=== PATIENT | female | born 1950 | race Caucasian/White ===

== ENCOUNTER 2017-07-08 16:18 | Emergency (ER) | payer OTHER ==
[2017-07-08 16:35] VITALS: BP 152/53
--- NOTE | 2017-07-08 16:55 | EDM.PDOC ---
<RamaRobbie Terese - Last Filed: 07/08/17 19:04> ED HPI GENERAL MEDICAL PROBLEM - General Chief Complaint: Gastrointestinal Problem Stated Complaint: DEHYDRATION Time Seen by Provider: 07/08/17 16:55 - History of Present Illness INITIAL COMMENTS - FREE TEXT/NARRATIVE: 66-year-old female presents emergency room with dehydration. 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 She has had nausea frequent vomiting and just not eating or drinking very much. She has stopped a bunch of her medication including her nausea medication because of itching she's not sure what the attending agedness however it is thought to be possibly the sulfa medications she was on Bactrim prophylactically. The patient has had some intermittent urinary tract symptoms. Back Pain Score (Numeric/FACES): 7 - Related Data Allergies Allergy/AdvReac Type Severity Reaction Status Date / Time levofloxacin Allergy Cannot Verified 07/08/17 16:29 Remember paroxetine HCl [From Paxil] Allergy Rash Verified 07/08/17 16:29 baclofen AdvReac Change Verified 07/08/17 16:29 Mental Status Home Meds: Home Meds Ascorbic Acid [Vitamin C] 1,000 mg PO DAILY 10/14/15 [History] Calcium Carbonate [Calcium] 500 mg PO DAILY 10/14/15 [History] Candesartan/Hydrochlorothiazid [Candesartan-Hctz 32-12.5 mg Tb] 1 tab PO DAILY 10/14/15 [History] Cholecalciferol (Vitamin D3) [Vitamin D3] 1,000 units PO DAILY 10/14/15 [History ] Latanoprost [Xalatan 0.005% Ophth Soln] 1 drop EYEBOTH DAILY 10/14/15 [History] Lubiprostone [Amitiza] 1 tab PO DAILY 10/14/15 [History] Metoprolol/Hydrochlorothiazide [Metoprolol-HCTZ 50-25 MG] 1 tab PO DAILY [History] Omeprazole [Omeprazole] 40 mg PO BID 10/14/15 [History] Simvastatin [Zocor] 10 mg PO DAILY 10/14/15 [History] Vitamin B Complex [B Complex] 1 each PO DAILY 10/14/15 [History] Ondansetron [Zofran ODT] 4 mg PO Q4H PRN #12 tab.dis 07/08/17 [Rx] Potassium Chloride [Klor-Con M20] 20 meq PO BID #6 tab.er 07/08/17 [Rx] Past Medical History HEENT History: Reports: Cataract, Impaired Vision Other HEENT History: Wears glasses Cardiovascular History: Reports: High Cholesterol, Hypertension [employer]PER[employer] History: Reports: Other OB/BYN History: Musculoskeletal History: Reports: Arthritis, Back Pain, Chronic Neurological History: Reports: Headaches, Chronic Endocrine/Metabolic History: Reports: Diabetes, Type II, Other (See Below) Other Endocrine/Metabolic History: 3 nodules on thyroid - Infectious Disease History Infectious Disease History: Reports: Chicken Pox - Past Surgical History HEENT Surgical History: Reports: Naso-Sinus Surgery GI Surgical History: Reports: Cholecystectomy, Hernia Repair/Other, Other (See Below) Musculoskeletal Surgical History: Reports: Carpal Tunnel, Other (See Below) Social & Family History - Tobacco Use Smoking Status *Q: Never Smoker - Recreational Drug Use Recreational Drug Use: No ED ROS GENERAL - Review of Systems Review Of Systems: See Below Constitutional: Reports: No Symptoms HEENT: Reports: No Symptoms Respiratory: Reports: No Symptoms Cardiovascular: Reports: No Symptoms Endocrine: Reports: No Symptoms GI/Abdominal: Reports: Diarrhea, Nausea, Vomiting. Denies: Abdominal Pain : Reports: Dysuria, Urgency Neurological: Reports: No Symptoms ED EXAM, GI/ABD - Physical Exam Exam: See Below Exam Limited By: No Limitations General Appearance: Alert, No Apparent Distress Head: Atraumatic, Normocephalic Neck: Normal Inspection, Supple, Non-Tender, Full Range of Motion. No: Lymphadenopathy (L), Lymphadenopathy (R) Respiratory/Chest: No Respiratory Distress, Lungs Clear, Normal Breath Sounds Cardiovascular: Regular Rate, Rhythm, No Edema, Systolic Murmur, Other (Soft holosystolic murmur) GI/Abdominal Exam: Normal Bowel Sounds, Soft, Other (Vague suprapubic discomfort ). No: Distended, Guarding, Rigid, Rebound Back Exam: Normal Inspection, CVA Tenderness (L). No: CVA Tenderness (R), Vertebral Tenderness Extremities: Normal Inspection, No Pedal Edema Neurological: Alert, Oriented, Normal Cognition Skin Exam: Warm, Dry, Intact Course - Vital Signs Last Recorded V/S: Last Vital Signs Temp 36.7 C 07/08/17 16:30 Pulse 100 07/08/17 16:30 Resp 17 07/08/17 16:30 BP 152/53 H 07/08/17 16:30 Pulse Ox 100 07/08/17 16:30 - Orders/Labs/Meds Labs: Laboratory Tests 07/08/17 07/08/17 07/08/17 Range/Units 16:35 16:35 19:15 WBC 5.25 (3.98-10.04) K/mm3 RBC 3.61 L (3.98-5.22) M/mm3 Hgb 10.4 L (11.2-15.7) gm/L Hct 30.2 L (34.1-44.9) % MCV 83.7 (79.4-94.8) fl MCH 28.8 (25.6-32.2) pg MCHC 34.4 (32.2-35.5) g/dl RDW Std Deviation 53.6 H (36.4-46.3) fL Plt Count 183 (182-369) K/mm3 MPV 8.6 L (9.4-12.3) fl Neutrophils % (Manual) 55 (40-60) % Band Neutrophils % 0 (0-10) % Lymphocytes % (Manual) 32 (20-40) % Atypical Lymphs % 0 % Monocytes % (Manual) 7 (2-10) % Eosinophils % (Manual) 5 (0.7-5.8) % Basophils % (Manual) 1 (0.1-1.2) Platelet Estimate Adequate Plt Morphology Comment Normal Anisocytosis 1+ slight RBC Morph Comment Not Reportable Sodium 139 (136-145) mEq/L Potassium 2.9 L (3.5-5.1) mEq/L Chloride 104 (98-107) mEq/L Carbon Dioxide 20 L (21-32) mEq/L Anion Gap 17.9 H (5-15) BUN 11 (7-18) mg/dL Creatinine 0.9 (0.55-1.02) mg/dL Est Cr Clr Drug Dosing 54.53 mL/min Estimated GFR (MDRD) > 60 (>60) mL/min BUN/Creatinine Ratio 12.2 L (14-18) Glucose 145 H (80-115) mg/dL Calcium 9.6 (8.5-10.1) mg/dL Total Bilirubin 0.6 (0.2-1.0) mg/dL AST 35 (15-37) U/L ALT 45 (14-59) U/L Alkaline Phosphatase 270 H (46-116) U/L Total Protein 6.3 L (6.4-8.2) g/dl Albumin 3.4 (3.4-5.0) g/dl Globulin 2.9 gm/dL Albumin/Globulin Ratio 1.2 (1-2) Lipase 86 (73-393) U/L Urine Color Yellow (Yellow) Urine Appearance Clear (Clear) Urine pH 7.0 (5.0-8.0) Ur Specific Elizabeth 1.020 (1.005-1.030) Urine Protein Trace H (Negative) Urine Glucose (UA) Negative (Negative) Urine Ketones Negative (Negative) Urine Occult Blood Negative (Negative) Urine Nitrite Negative (Negative) Urine Bilirubin Negative (Negative) Urine Urobilinogen 0.2 (0.2-1.0) Ur Leukocyte Esterase Trace H (Negative) Urine RBC 0-5 (0-5) /hpf Urine WBC 0-5 (0-5) /hpf Ur Epithelial Cells 0-5 (0-5) /hpf Urine Bacteria Few (FEW) /hpf Urine Mucus Few (FEW) /hpf Meds: Medications Discontinued Medications Generic Name Dose Route Start Last Admin Trade Name Ewa PRN Reason Stop Dose Admin Lactated Ringer's 1,000 mls @ 999 mls/hr 07/08/17 17:15 07/08/17 17:26 Ringers, Lactated IV 07/08/17 18:15 999 mls/hr .BOLUS ONE Administration Lactated Ringer's 1,000 mls @ 999 mls/hr 07/08/17 18:38 07/08/17 18:47 Ringers, Lactated IV 07/08/17 19:38 999 mls/hr .BOLUS ONE Administration Ondansetron HCl 4 mg 07/08/17 17:15 07/08/17 17:26 Zofran IVPUSH 07/08/17 17:16 4 mg ONETIME ONE Administration Potassium Chloride 40 meq 07/08/17 18:40 07/08/17 18:47 Klor-Con M20 PO 07/08/17 18:41 40 meq ONETIME ONE Administration - Re-Assessments/Exams Free Text/Narrative Re-Assessment/Exam: 07/08/17 18:52 Patient had some improvement with the Zofran she's received a liter of LR will start a second liter now. We'll discharge her on Zofran awaiting urine specimen at this point it was noted that her potassium was low at 2.9 she's given 40 mEq by mouth we are still awaiting the urinalysis Departure - Departure Disposition: Home, Self-Care 01 Clinical Impression: Dehydration, Hypokalemia - Discharge Information Prescriptions: Ondansetron [Zofran ODT] 4 mg PO Q4H PRN #12 tab.dis PRN Reason: Nausea/Vomiting Potassium Chloride [Klor-Con M20] 20 meq PO BID #6 tab.er Instructions: Hypokalemia Referrals: Kika Bailey [employer] ESTATE DEVELOPMENT MANAGER [Primary Care Provider] - Forms: ED Department Discharge Additional Instructions: Return to the emergency room with any questions problems worsening symptoms. Follow-up with your regular physician tomorrow as scheduled. You been started on some potassium take one twice daily until all gone you'll need follow-up on your potassium levels down the road discuss this with your regular physician. We are trying you on Zofran, this is an anti-nausea medication. It seems to be working pretty well for you here in the emergency room. He regular physician can refill this if you find it helpful. <Wilfredo Cardoso - Last Filed: 07/08/17 19:49> Course - Re-Assessments/Exams Free Text/Narrative Re-Assessment/Exam: 07/08/17 19:48 urinalysis has returned and is negative for infection. Discharge notes of our to been written by Dr. Ontiveros. Patient will be discharged home at this time. She reports to the nurses that she is feeling markedly improved. Departure - Departure Time of Disposition: 19:49
[2017-07-08] MEDS ORDERED: Ondansetron 4 MG/2 ML SDV IVPUSH ONE (17:15)
[2017-07-08] MEDS ORDERED: Lactated Ringers 1,000 ML IV ONE ×2 (17:15→18:38)
[2017-07-08] MEDS ORDERED: Potassium Chloride 20 MEQ Tab.ER PO ONE (18:40)
== END 2017-07-08 19:52 | disposition home or self-care (01) ==
LOC: JD.ED 16:18
DX: E86.0 Dehydration (principal); E87.6 Hypokalemia; I10 Essential (primary) hypertension; Z88.1 Allergy status to other antibiotic agents; Z88.8 Allergy status to other drugs, medicaments and biological substances; Z79.899 Other long term (current) drug therapy
CPT/HCPCS: 36415; 80053; 81001; 83690; 85025; 96361; 96374; 99284; A9270; J2405; J7120